=== PATIENT | female | born 1995 | race Caucasian/White ===

== ENCOUNTER 2021-05-31 06:32 | Inpatient (IN) ==
[2021-05-31] MEDS ORDERED: NS 100 ML IV 100 ML ONE (06:58)
[2021-05-31] MEDS ORDERED: LR 1,000 ML IV 1,000 ML IV ONE ×3 (06:58→09:12)
[2021-05-31] MEDS ORDERED: ANCEF VIAL 1 GRAM ONE ×2 (06:58→07:02)
[2021-05-31] MEDS: D5 1/2 NS 1,000 ML 1,000 ML IV SCH ×2 (07:00→07:46)
[2021-05-31] MEDS ORDERED: ANCEF VIAL 1 GRAM IVP ONE (07:46)
[2021-05-31] MEDS ORDERED: DILAUDID INJ ONE (08:30)
[2021-05-31] MEDS ORDERED: XYLOCAINE 1 % (PLAIN) ONE (08:47)
[2021-05-31] MEDS ORDERED: VERSED ONE (08:47)
[2021-05-31] MEDS ORDERED: MARCAINE 0.5% ONE (08:47)
[2021-05-31] MEDS ORDERED: MARCAINE SPINAL ONE (08:47)
[2021-05-31] MEDS ORDERED: DIPRIVAN VIAL ONE (08:47)
[2021-05-31] MEDS ORDERED: PHENERGAN INJ 25 MG IM PRN (10:14)
[2021-05-31] MEDS ORDERED: BENADRYL INJ 50 MG VIAL IVP PRN (10:14)
[2021-05-31] MEDS ORDERED: DILAUDID INJ IVP PRN (10:14)
[2021-05-31] MEDS ORDERED: REGLAN INJ 10 MG VIAL IVP PRN (10:14)
[2021-05-31] MEDS ORDERED: ZOFRAN INJ 4 MG VIAL IVP PRN (10:14)
[2021-05-31] MEDS ORDERED: BARHEMSYS INJ IVP PRN (10:14)
[2021-05-31] MEDS ORDERED: ADACEL or BOOSTRIX TDaP VACCINE IM ONE (10:39)
[2021-05-31] MEDS ORDERED: MYLICON TAB 80 MG CHEW PO PRN (10:39)
[2021-05-31] MEDS ORDERED: D5 1/2 NS 1,000 mL + PITOCIN 20 UNITS/L IV 20 UNITS/1,000 ML BAG IV ONE (10:41)
[2021-05-31] MEDS ORDERED: D5 1/2 NS 1,000 ML 1,000 ML with PITOCIN 20 UNITS IV SCH ×2 (11:00)
[2021-05-31] MEDS: NICOTINE PATCH TD SCH (16:43)
[2021-05-31] MEDS ORDERED: TORADOL 30 MG VIAL IVP PRN (18:11)
[2021-05-31] MEDS ORDERED: PERCOCET TAB 5/325 MG PO PRN (18:13)
[2021-06-01 05:17] LABS: HEMATOCRIT 32.8 % (36.0-47.0); HEMOGLOBIN 11.2 g/dL (12.0-16.0)
[2021-06-01] MEDS: MOTRIN TAB 800 MG PO PRN (08:56)
[2021-06-01] MEDS: NICOTINE PATCH TD SCH (08:57)
[2021-06-01] MEDS ORDERED: CELEXA PO SCH ×2 (09:00)
[2021-06-01] MEDS ORDERED: PRENATAL PLUS PO SCH (09:00)
[2021-06-01] MEDS: BACTROBAN TOPICAL OINT TOP SCH ×2 (17:00→22:23)
[2021-06-01] MEDS ORDERED: COLACE CAP 100 MG PO SCH (21:00)
[2021-06-02] MEDS: MOTRIN TAB 800 MG PO PRN (00:48)
[2021-06-02] MEDS ORDERED: DEPO-PROVERA CONTRACEPTIVE INJ IM ONE (05:58)
[2021-06-02] MEDS: BACTROBAN TOPICAL OINT TOP SCH (06:28)
[2021-06-02 08:21] VITALS: BP 107/56
== END 2021-06-02 09:21 | disposition home or self-care (01) | DRG 788 ==
LOC: LD 06:32 → MED/SURG 10:37
PROVIDERS: ADMIT Specialist; ATTEND Specialist

== ENCOUNTER 2024-10-08 16:12 | Inpatient (IN) ==
[2024-10-08 16:28] VITALS: BMI 27.8
[2024-10-08] MEDS ORDERED: ANCEF VIAL 1 GRAM IVP PRN (16:48)
[2024-10-08] MEDS: NS 100 ML IV 100 ML ONE (17:00)
[2024-10-08] MEDS: XYLOCAINE 1 % (PLAIN) ONE (17:03)
[2024-10-08] MEDS: MARCAINE SPINAL ONE (17:04)
[2024-10-08] MEDS: PRECEDEX INJ VIAL ONE (17:04)
[2024-10-08] MEDS: DIPRIVAN VIAL 20 ML ONE (17:05)
[2024-10-08] MEDS: LR 1,000 ML IV 1,000 ML IV ONE (17:08)
[2024-10-08] MEDS: VERSED ONE (17:09)
[2024-10-08] MEDS: ZOFRAN INJ 4 MG VIAL ONE (17:09)
[2024-10-08] MEDS: REGLAN INJ 10 MG VIAL ONE (17:09)
[2024-10-08] MEDS: PEPCID 20 MG VIAL ONE (17:11)
[2024-10-08 17:13] LABS: BASOPHILS # (AUTO) 0.1 X10^3/uL (0.0-0.1); BASOPHILS % (AUTO) 0.9 % (0.2-1.0); EOSINOPHILS % (AUTO) 0.4 % (0.9-2.9); HEMATOCRIT 30.1 % (36.0-47.0); HEMOGLOBIN 9.9 g/dL (12.0-16.0); LYMPHOCYTES # (AUTO) 1.7 X10^3/uL (1.3-2.9); LYMPHOCYTES % (AUTO) 19.3 % (21.0-51.0); MEAN CORPUSCULAR HEMOGLOBIN 26.8 pg (27.0-34.0); MEAN CORPUSCULAR HGB CONC 32.9 g/dL (33.0-35.0); MEAN CORPUSCULAR VOLUME 81.5 fL (80.0-100.0); MEAN PLATELET VOLUME 9.4 fL (7.4-11.0); MONOCYTES # (AUTO) 0.8 x10^3/uL (0.3-0.8); NEUTROPHILS # (AUTO) 6.1 x10^3/uL (2.2-4.8); NEUTROPHILS % (AUTO) 70.4 % (42.0-75.0); PLATELET COUNT 191 X10^3/uL (150.0-450.0); RED BLOOD COUNT 3.69 X10^6/uL (3.5-5.4); RED CELL DISTRIBUTION WIDTH 15.5 % (11.6-16.5); WHITE BLOOD COUNT 8.6 X10^3/uL (3.6-10.0)
[2024-10-08] MEDS: PITOCIN ONE (17:19)
[2024-10-08 17:20] LABS: BLOOD UREA NITROGEN 10 mg/dL (7-18); CALCIUM 7.9 mg/dL (8.5-10.1); CARBON DIOXIDE 22.2 mmol/L (21-32); CHLORIDE 106 mmol/L (98-107); CREATININE 0.88 mg/dL (0.55-1.02); GLUCOSE 71 mg/dL (65-99); POTASSIUM 3.7 mmol/L (3.5-5.1); SODIUM 139 mmol/L (136-145); eGFR NON BLACK RACES > 60 (>60)
[2024-10-08] MEDS: TORADOL 30 MG VIAL ONE (17:51)
[2024-10-08] MEDS: OFIRMEV IV 1000 MG VIAL 1,000 MG/100 ML VIAL IV ONE (17:51)
[2024-10-08] MEDS ORDERED: DILAUDID INJ IVP PRN (18:06)
[2024-10-08] MEDS ORDERED: BARHEMSYS INJ IVP PRN (18:06)
[2024-10-08] MEDS ORDERED: BENADRYL INJ 50 MG VIAL IVP PRN ×2 (18:06→19:30)
[2024-10-08] MEDS ORDERED: ZOFRAN INJ 4 MG VIAL IVP PRN ×2 (18:06→19:30)
[2024-10-08 18:08] LABS: BILIRUBIN,URINE NEGATIVE (NEGATIVE); BLOOD/HEMOGLOBIN,URINE 4+ (NEGATIVE); GLUCOSE, URINE NEGATIVE (NEGATIVE); KETONES,URINE NEGATIVE (NEGATIVE); LEUKOCYTE ESTERASE ,URINE NEGATIVE (NEGATIVE); NITRITES,URINE NEGATIVE (NEGATIVE); PROTEIN,URINE 1+ (NEGATIVE); UROBILINOGEN,URINE NORMAL (NORMAL)
[2024-10-08 18:19] LABS: APPEARANCE,URINE CLEAR (CLEAR); BACTERIA,URINE NEGATIVE /HPF (NEGATIVE); COLOR,URINE PALE YELLOW (YELLOW); SQUAMOUS EPITHELIAL CELL,UR RARE /HPF (NEGATIVE)
[2024-10-08] MEDS ORDERED: MYLICON TAB 80 MG CHEW PO PRN (19:30)
[2024-10-08] MEDS: REGLAN INJ 10 MG VIAL IVP PRN (19:30)
[2024-10-08] MEDS ORDERED: ADACEL or BOOSTRIX TDaP VACCINE IM ONE (19:30)
[2024-10-08] MEDS: TORADOL 30 MG VIAL IVP PRN (21:49)
[2024-10-09] MEDS: PERCOCET TAB 5/325 MG PO PRN ×2 (02:27→10:48)
[2024-10-09 04:50] LABS: HEMATOCRIT 26.2 % (36.0-47.0); HEMOGLOBIN 8.8 g/dL (12.0-16.0)
[2024-10-09] MEDS: OXYTOCIN 20 UNIT/1,000 ML-NS 20 UNIT/1,000 ML PLAST..BAG IV SCH (07:24)
[2024-10-09] MEDS: MOTRIN TAB 800 MG PO PRN ×2 (07:29→19:58)
[2024-10-09] MEDS: COLACE CAP 100 MG PO SCH (08:40)
[2024-10-09] MEDS: PRENATAL PLUS PO SCH (08:40)
[2024-10-09] MEDS: ALPRAZOLAM ODT PO PRN (08:40)
[2024-10-09] MEDS: ADACEL or BOOSTRIX TDaP VACCINE IM ONE (09:52)
[2024-10-09] MEDS: BACTROBAN TOPICAL OINT TOP SCH (13:44)
[2024-10-10 04:21] VITALS: TEMP 97.9
[2024-10-10 08:50] VITALS: BP 116/75; PULSE 103; RESP 21; O2SAT 98
== END 2024-10-10 10:10 | disposition home or self-care (01) | DRG 785 ==
LOC: ER 16:12 → LD 16:39 → MED/SURG 19:25
PROVIDERS: ADMIT Specialist; ATTEND Specialist
DX: Z30.2 Encounter for sterilization; O99.343 Other mental disorders complicating pregnancy, third trimester; Z37.0 Single live birth; Z3A.38 38 weeks gestation of pregnancy; M54.59 Other low back pain; O34.211 Maternal care for low transverse scar from previous cesarean delivery; O99.613 Diseases of the digestive system complicating pregnancy, third trimester; O99.891 Other specified diseases and conditions complicating pregnancy; Z72.0 Tobacco use; N85.8 Other specified noninflammatory disorders of uterus; F41.8 Other specified anxiety disorders; K21.9 Gastro-esophageal reflux disease without esophagitis